=== PATIENT | male | born 1935 | race Caucasian/White ===

== ENCOUNTER 2017-11-17 10:30 | Outpatient (CLI) | payer MEDICARE ==
[2017-11-17 12:07] LABS: #Eosinphils 0.1 thou/uL (0.0-0.7); #Lymphocytes 1.6 thou/uL (1.20-3.40); #Monocytes 0.9 thou/uL (0.11-0.59); #Neutrophils 4.3 thou/uL (1.40-6.50); %Basophils 0.5 % (0.0-1.0); %Eosinophils 2.1 % (0.0-10.0); %Monocytes 12.3 % (0.0-10.0); %Neutrophils 62.1 % (42.0-75.0); Hemoglobin 14.5 g/dL (14.0-18.0); Mean Corpuscular HGB CONC 31.7 g/dL (32.0-36.0); Mean Corpuscular Hemoglobin 28.3 pg (27.0-31.0); Mean Corpuscular Volume 89.3 fL (78.0-98.0); Mean Platelet Volume 7.9 fL (7.4-10.4); Platelet Count 253 thou/uL (130-400); RBC Distribution Width 14.1 % (11.5-14.5); Red Blood Cell (RBC) Count 5.13 mill/uL (4.70-6.10); White Blood Cell (WBC) Count 6.9 thou/uL (4.8-10.8)
[2017-11-17 12:29] LABS: INR-International Normal Ratio 1.6; PTT 39.6 SEC (22.9-36.1); Prothrombin Time 18.8 SEC (12.0-14.7)
[2017-11-17 12:33] LABS: Anion Gap 10 mmol/L (10-20); BUN (Urea Nitrogen) 14 mg/dL (8.4-25.7); Calc. Creatinine Clearance 0 mL/min (70-130); Calcium 9.3 mg/dL (7.8-10.44); Carbon Dioxide 28 mmol/L (23-31); Chloride 110 mmol/L (98-107); Estimated GFR-MDRD 65; Glucose 73 mg/dL (83-110); Potassium 4.2 mmol/L (3.5-5.1); Sodium 144 mmol/L (136-145)
== END 2017-11-17 10:31 | disposition home or self-care (01) ==
LOC: LABBT 10:30
PROVIDERS: ATTEND Internal Medicine Cardiovascular Disease
DX: Z01.812 Encounter for preprocedural laboratory examination (principal); I48.1 Persistent atrial fibrillation
CPT/HCPCS: 80048; 85025; 85610; 85730

== ENCOUNTER 2017-11-19 09:09 | Day surgery (SDC) | payer MEDICARE ==
[2017-11-17 11:09] VITALS: BMI 29.4
[2017-11-19] MEDS ORDERED: PROPOFOL 20 ML ONE (10:01)
[2017-11-19] MEDS ORDERED: Midazolam HCl 2 mg/2 ml Vial ONE (10:05)
[2017-11-19] MEDS ORDERED: hydrALAZINE 20 MG/ML VIAL ONE (11:20)
--- NOTE | 2017-11-19 23:27 | OP ---
DATE OF SERVICE: 11/19/2017 PREPROCEDURE DIAGNOSIS: Atrial fibrillation. PROCEDURES PERFORMED Direct current cardioversion. SUMMARY: The patient is a pleasant 82-year-old white gentleman who comes to the outpatient area for planned ca rdioversion. Please see [facility] report for details. After cleared from thrombus, he received a first s ynchronized shock at 100 joules, which was unsuccessful. A second synchronized shock at 200 joules w as unsuccessful. A third synchronized shock at 360 joules, which successfully converted him from atr ial fibrillation to sinus rhythm with PACs. He tolerated the procedure well. RECOMMENDATIONS: Continue medical therapy. Continue Eliquis and flecainide as well as metoprolol. Follow up in the office in 1 month.
--- NOTE | 2017-11-19 23:35 | ECHO ---
DATE OF SERVICE: 11/19/2017. PREPROCEDURE DIAGNOSES: Atrial fibrillation. The Anesthesiology Department provided sedation for the patient. Please see their notes for details. After adequate sedation was achieved, the transesophageal probe was inserted into the mouth and into the esophagus and multiplanar views were obtained. Left ventricle appears to be normal size with normal wall thickness. Systolic function is normal, es timated EF at 55-60%. No regional wall motion abnormalities. Left atrium is mildly dilated. Left atrial appendage is small with spontaneous echo contours, but no evidence of mass or thrombus. Reduced velocities. Right atrium is normal size with no mass or thrombus. The right ventricle is normal size with normal RV systolic function. Aortic valve is sclerotic but opens well, no stenosis. Mild aortic insufficiency. The mitral valve is structurally normal. There is mild MR, no stenosis. Tricuspid valve is structurally normal. There is mild TR. Pulmonary valve structurally normal. There is mild PI. CONCLUSIONS: 1. Normal systolic function, EF of 55-60%. 2. Mild left atrial enlargement. 3. Small left atrial appendage with reduced velocities. 1. Spontaneous echo contours, but no mass or thrombus. 2. Mild TR, mild MR, mild PI.
== END 2017-11-19 12:40 | disposition home or self-care (01) ==
LOC: CCL 09:09
PROVIDERS: ATTEND Internal Medicine Cardiovascular Disease
PROC: 5A2204Z Restoration of Cardiac Rhythm, Single (ICD-10-PCS; principal; 2017-11-19)
PROC: B24BZZ4 Ultrasonography of Heart with Aorta, Transesophageal (ICD-10-PCS; 2017-11-19)
DX: I48.1 Persistent atrial fibrillation (principal); I08.1 Rheumatic disorders of both mitral and tricuspid valves; E78.5 Hyperlipidemia, unspecified; I10 Essential (primary) hypertension; Z79.01 Long term (current) use of anticoagulants; Z79.899 Other long term (current) drug therapy; Z88.1 Allergy status to other antibiotic agents
CPT/HCPCS: 92960; 93312; 96374; J0360; J2250; J2704

== ENCOUNTER 2018-12-10 09:23 | Outpatient (CLI) | payer MEDICARE ==
--- NOTE | 2018-12-10 11:36 | CT ---
POSTCONTRAST SOFT TISSUE NECK CT: HISTORY: Swelling of the back of the neck x many years. COMPARISON: None. TECHNIQUE: Postcontrast soft tissue neck CT is performed in the axial plane. Sagittal and coronal reformatted im ages are submitted for interpretation. FINDINGS: Brain parenchyma: No pathologic enhancement. Orbits: Bilateral ocular lenses are appropriately located. No intraorbital abnormality. Sinuses: Adequate aeration of the visualized paranasal sinuses and mastoid air cells. Aerodigestive tract: No mucosal abnormality. Limited evaluation of the oral cavity due to dental amal darek artifact. Midline fatty raphae of the tongue is preserved. Epiglottis is normal caliber. Preepiglottic fat is preserved. Symmetric attenuation of the submandibular and parotid glands. Heterogeneous thyroid gland. Nonemergent thyroid ultrasound is recommended. Symmetric attenuation of the paraspinal muscles and sternocleidomastoid muscles. Grossly the great vessels of the neck are patent. There is a hypodensity in the right peritracheal region measuring 2.7 x 3.3 cm. Groundglass opacities in the visualized lung parenchyma. Cervical spine vertebral body height is maintained. No fracture. There are varying degrees of central canal stenosis and neural foraminal narrowing. No evidence of lymphadenopathy by size criteria. In the posterior right neck, there is a well-circumscribed heterogeneous mass confined to the subcuta neous fat with mixed attenuation. 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 IMPRESSION: Well-differentiated liposarcoma the posterior left neck. CODE T Transcribed Date/Time: 12/10/2018 11:40 AM
== END 2018-12-10 09:24 | disposition home or self-care (01) ==
LOC: CT 09:23
PROVIDERS: ATTEND Student in an Organized Health Care Education/Training Program
DX: R22.1 Localized swelling, mass and lump, neck (principal); C76.0 Malignant neoplasm of head, face and neck
CPT/HCPCS: 70491; 82565

== ENCOUNTER 2018-12-14 08:19 | Day surgery (SDC) | payer MEDICARE ==
[2018-12-13 17:05] VITALS: BMI 30.2
[2018-12-14 10:03] LABS: Hemoglobin 14.7 g/dL (14.0-18.0)
[2018-12-14 10:40] LABS: Anion Gap 14 mmol/L (10-20); BUN (Urea Nitrogen) 15 mg/dL (8.4-25.7); Calc. Creatinine Clearance 83 mL/min (70-130); Calcium 9.4 mg/dL (7.8-10.44); Carbon Dioxide 22 mmol/L (23-31); Chloride 108 mmol/L (98-107); Estimated GFR-MDRD 76; Glucose 73 mg/dL (83-110); Potassium 3.8 mmol/L (3.5-5.1); Sodium 140 mmol/L (136-145)
[2018-12-14] MEDS ORDERED: PROPOFOL 200 MG/20 ML VIAL ONE (12:14)
[2018-12-14] MEDS ORDERED: Ondansetron PF 4 MG/2 ML Vial ONE (12:14)
[2018-12-14] MEDS ORDERED: ePHEDrine/0.9% NaCl/PF SYRINGE 50 mg/10 ml ONE (12:14)
[2018-12-14] MEDS ORDERED: Rocuronium Bromide 10 MG/ML (10ML VIAL) ONE (12:14)
--- NOTE | 2018-12-14 12:49 | EKG ---
Test Reason : PREOP Blood Pressure : / mmHG Vent. Rate : 047 BPM Atrial Rate : 077 BPM P-R Int : 000 ms QRS Dur : 100 ms QT Int : 492 ms P-R-T Axes : 000 -12 005 degrees QTc Int : 435 ms Atrial fibrillation with slow ventricular response Abnormal ECG No previous ECGs available Confirmed by DR. Sayda RAYMUNDO ([id number]) on 12/14/2018 12:48:37 PM Referred By: FRANCOIS Confirmed By:DR. Sayda RAYMUNDO
[2018-12-14] MEDS ORDERED: Lidocaine 1% w/Epinephrine 1:100K 20 ML VIAL ONE (14:51)
[2018-12-14] MEDS ORDERED: Fentanyl 100 MCG/2 ML VIAL ONE ×2 (14:55→16:52)
[2018-12-14] MEDS ORDERED: Bacitracin Zinc Ointment 30 gm TUBE ONE (16:09)
[2018-12-14] MEDS ORDERED: traMADol HCl 50 MG TAB ONE (18:23)
--- NOTE | 2018-12-15 09:07 | OP ---
DATE OF PROCEDURE: 12/14/2018 PREOPERATIVE DIAGNOSIS: Posterior neck mass. POSTOPERATIVE DIAGNOSIS: Posterior neck mass. PROCEDURE: Excision of large posterior neck mass and complex closure of wound in layers. PERMIT: Procedure, benefits, risks including those risk of bleeding, infection, injury to anesthesia, allergic reaction or nerve damage or recurrence necessitating revision surgery, and alternatives were reviewed with the patient and family, they expressed understanding of the information. The consent form was signed and witnessed and a paper copy of the consent form is available for review in the paper chart. INDICATIONS: This is a male patient presenting with at least 10 years of a posterior neck mass that has been increasing in size and given its position, irritation, pain and discomfort, the patient opted for surgical removal. ASSISTANTS: None. FINDINGS: Large posterior neck mass, roughly 7 cm that is fatty in nature. DESCRIPTION OF OPERATION: The patient was brought to the operating room and laid in a prone position on the operating room table. General endotracheal anesthesia was administered. The bed was pulled down gently. The patient was then injected with 1% lidocaine to 1:100,000 epinephrine and the patient was then marked and prepped and draped in a sterile fashion and a 7 cm incision was made over the posterior neck mass using a 15 blade cutting through the epidermis and through the dermis and just exposing the subcutaneous tissue. A Bovie cautery was then used to separate the superficial subcutaneous tissue and then using a Julisa rake retractor the dermis and subcutaneous layer. A Metzenbaum scissor was used to undermine the tissue and elevated the tissue superiorly and inferiorly from the horizontal incision on the neck, exposing the fatty mass deep to the incision site. The mass was then dissected clear of the subcutaneous tissue and care was taken not to damage any musculature of the neck and the mass was removed and sent for permanent pathologic evaluation. The wound was then irrigated copiously and suctioned and then small vessels were cauterized using Bovie cautery. A Valsalva was performed. A #10 channel drain was then placed in the cavity and secured with 2-0 silk suture. Next, 3-0 Vicryl suture was then used to close the deep layer and then a superficial layer for the large defect. A 4-0 Prolene was used in a continuous running fashion to close the superficial skin. Bacitracin was applied to the wound and bulb suction was then placed and seen clearly to be holding. The patient was then turned back to anesthesia for emergence and the patient tolerated the procedure well. ESTIMATED BLOOD LOSS: 2 mL. Job ID: [id number]
== END 2018-12-14 18:30 | disposition home or self-care (01) ==
LOC: SDC 08:19
PROVIDERS: ATTEND Student in an Organized Health Care Education/Training Program
PROC: 0JB50ZZ Excision of Left Neck Subcutaneous Tissue and Fascia, Open Approach (ICD-10-PCS; principal; 2018-12-14)
PROC: 0JQ50ZZ Repair Left Neck Subcutaneous Tissue and Fascia, Open Approach (ICD-10-PCS; 2018-12-14)
DX: D17.0 Benign lipomatous neoplasm of skin and subcutaneous tissue of head, face and neck (principal); I10 Essential (primary) hypertension; E78.5 Hyperlipidemia, unspecified; N40.0 Benign prostatic hyperplasia without lower urinary tract symptoms; Z79.01 Long term (current) use of anticoagulants; Z79.899 Other long term (current) drug therapy; Z88.1 Allergy status to other antibiotic agents; Z96.653 Presence of artificial knee joint, bilateral
CPT/HCPCS: 36415; 80048; 85014; 85018; 88307; 93005; 93010; J2405; J2704; J3010

== ENCOUNTER → 2022-08-18 | Day surgery (SDC) | payer MEDICARE ==
[2022-08-15 08:56] VITALS: BMI 33.0
[~2022-08-18] MED LIST: Acetaminophen 500 MG TAB ONE; Acetaminophen/Codeine 30-300mg Tablet ONE; HYDROcodone/Acetaminophen 5/325 mg Tablet ONE; Heparin 10,000 UNITS/ 10 ML VIAL ONE; Iopamidol 370 76% 100 ML VIAL ONE; Lidocaine 1% (PF) 30 ML VIAL ONE; Midazolam HCl 2 mg/2 ml Vial ONE; Nitroglycerin 50 MG/250 ML BOT 0 ML ONE; fentaNYL 50 mcg/mL 1 mL Vial ONE
[2022-08-18 08:51] LABS: #Eosinphils 0.1 thou/uL (0.0-0.7); #Monocytes 0.5 thou/uL (0.11-0.59); #Neutrophils 3.5 thou/uL (1.40-6.50); %Basophils 0.4 % (0.0-1.0); %Eosinophils 1.1 % (0.0-10.0); %Lymphocytes 22.1 % (21.0-51.0); %Monocytes 9.8 % (0.0-10.0); %Neutrophils 66.2 % (42.0-75.0); Hemoglobin 12.4 g/dL (14.0-18.0); Mean Corpuscular Hemoglobin 27.7 pg (27.0-31.0); Mean Corpuscular Volume 86.6 fl (78.0-98.0); Platelet Count 204 10x3/uL (130-400); RBC Distribution Width 15.8 % (11.5-14.5); Red Blood Cell (RBC) Count 4.48 mill/uL (4.70-6.10); White Blood Cell (WBC) Count 5.3 10x3/uL (4.8-10.8)
[2022-08-18 09:07] LABS: INR-International Normal Ratio 1.2; PTT 36.4 sec (22.9-36.1); Prothrombin Time 15.8 sec (12.0-14.7)
[2022-08-18 09:19] LABS: ALT (SGPT) 19 U/L (8-55); AST (SGOT) 17 U/L (5-34); Albumin 3.9 g/dL (3.4-4.8); Alkaline Phosphatase 63 U/L (40-110); Anion Gap 14 mmol/L (10-20); BUN (Urea Nitrogen) 11 mg/dL (8.4-25.7); Bilirubin, Total 0.8 mg/dL (0.2-1.2); Calc. Creatinine Clearance 87 mL/min (70-130); Calcium 9.3 mg/dL (7.8-10.44); Carbon Dioxide 23 mmol/L (23-31); Cardiac Risk 3.1 (Less than 4.5); Chloride 108 mmol/L (98-107); Cholesterol 123 mg/dl (< 200 Desired); Estimated GFR 82; Globulin 3.4 g/dL (2.4-3.5); Glucose 84 mg/dL (83-110); HDL Cholesterol 40 mg/dL (>60 Neg Risk); LDL Cholesterol, Calculated 55 mg/dL; Potassium 3.4 mmol/L (3.5-5.1); Protein, Total 7.3 g/dL (5.8-8.1); Sodium 142 mmol/L (136-145); Triglycerides 142 mg/dL (Less than 150)
== END ==
LOC: SDC 06:50
PROVIDERS: ATTEND Internal Medicine Cardiovascular Disease
DX: I48.0 Paroxysmal atrial fibrillation (principal); I25.10 Atherosclerotic heart disease of native coronary artery without angina pectoris; I35.0 Nonrheumatic aortic (valve) stenosis; D17.0 Benign lipomatous neoplasm of skin and subcutaneous tissue of head, face and neck; I10 Essential (primary) hypertension; R60.9 Edema, unspecified; E78.5 Hyperlipidemia, unspecified; Z79.01 Long term (current) use of anticoagulants; Z88.1 Allergy status to other antibiotic agents; Z96.653 Presence of artificial knee joint, bilateral
CPT/HCPCS: 80053; 80061; 85025; 85347; 85610; 85730; 93005; 93460; J3010; 36415; 93010; 99152; 99153; C1751; C1769; C1894; J1644; J2001; J2250; Q9967

== ENCOUNTER 2023-10-14 16:46 | Inpatient (IN) | payer MEDICARE ==
[2023-10-14 17:27] LABS: #Basophils Less than 0.03 10x3/uL (0.0-0.2); %Basophils 0.2 % (0.0-1.0); %Lymphocytes 13.4 % (21.0-51.0); %Monocytes 16.8 % (0.0-10.0); %Neutrophils 63.2 % (42.0-75.0); Hematocrit 21.8 % (42.0-52.0); Hemoglobin 6.7 g/dL (14.0-18.0); Mean Corpuscular HGB CONC 30.7 g/dL (32.0-36.0); Mean Corpuscular Volume 81.3 fL (78.0-98.0); Mean Platelet Volume 9.3 fL (7.4-10.4); Platelet Count 182 10x3/uL (130-400); RBC Distribution Width 23.7 % (11.5-14.5); Red Blood Cell (RBC) Count 2.68 mill/uL (4.70-6.10)
[2023-10-14 17:44] LABS: ALT (SGPT) 9 U/L (8-55); AST (SGOT) 14 U/L (5-34); Albumin 3.1 g/dL (3.4-4.8); Alkaline Phosphatase 54 U/L (40-110); Anion Gap 13 mmol/L (10-20); BUN (Urea Nitrogen) 29 mg/dL (8.4-25.7); Bilirubin, Total 0.6 mg/dL (0.2-1.2); Calc. Creatinine Clearance 0 mL/min (70-130); Calcium 9.1 mg/dL (7.8-10.44); Carbon Dioxide 25 mmol/L (23-31); Chloride 105 mmol/L (98-107); Estimated GFR 43; Globulin 3.6 g/dL (2.4-3.5); Glucose 86 mg/dL (83-110); Potassium 4.2 mmol/L (3.5-5.1); Protein, Total 6.7 g/dL (5.8-8.1); Sodium 139 mmol/L (136-145)
[2023-10-14] MEDS ORDERED: Ondansetron PF 4 MG/2 ML Vial IVP PRN (19:33)
[2023-10-14] MEDS ORDERED: Acetaminophen 325 MG TAB PO PRN (19:33)
[2023-10-14 19:56] LABS: Bacteria/HPF None Seen HPF (None Seen); Bilirubin Negative (Negative); Blood, Urine Negative (Negative); CAUTI Indications for Culture Pelvic or flank pain; Clarity Clear (Clear); Glucose, Urine (Dipstick) Normal (Negative); Ketone, Urine Negative (Negative); Leukocyte Negative Leu/uL (Negative); Nitrite Negative (Negative); Protein, Urine (Dipstick) Negative (Neg-Trace); RBC/HPF 0-3 HPF (0-3); Specific Gravity, Urine 1.011 (1.002-1.036); Squamous Epithelial 0-3 HPF (0-3); Urobilinogen Normal mg/dL (Less than 2); WBC/HPF 0-3 HPF (0-3)
[2023-10-14] MEDS ORDERED: Pantoprazole 40 MG VIAL ONE (19:59)
[2023-10-14 20:06] LABS: Urine Culture Reflex No No
[2023-10-14 21:19] LABS: Iron 23 ug/dL (65-175); Iron Binding Capacity, Total 279 mcg/dL (261-462)
[2023-10-14 21:53] LABS: INR-International Normal Ratio 1.7; Prothrombin Time 20.3 sec (12.0-14.7)
[2023-10-15 03:23] LABS: #Basophils Less than 0.03 10x3/uL (0.0-0.2); %Basophils 0.4 % (0.0-1.0); %Eosinophils 6.6 % (0.0-10.0); %Lymphocytes 15.7 % (21.0-51.0); %Neutrophils 60.1 % (42.0-75.0); Hematocrit 23.6 % (42.0-52.0); Hematocrit 23.9 % (42.0-52.0); Hemoglobin 7.1 g/dL (14.0-18.0); Hemoglobin 7.2 g/dL (14.0-18.0); Mean Corpuscular HGB CONC 30.1 g/dL (32.0-36.0); Mean Corpuscular Hemoglobin 24.4 pg (27.0-31.0); Platelet Count 183 10x3/uL (130-400); RBC Distribution Width 22.5 % (11.5-14.5); Red Blood Cell (RBC) Count 2.95 mill/uL (4.70-6.10)
[2023-10-15 03:43] LABS: Anion Gap 13 mmol/L (10-20); BUN (Urea Nitrogen) 24 mg/dL (8.4-25.7); Calc. Creatinine Clearance 57 mL/min (70-130); Calcium 8.9 mg/dL (7.8-10.44); Carbon Dioxide 19 mmol/L (23-31); Chloride 109 mmol/L (98-107); Estimated GFR 59; Glucose 81 mg/dL (83-110); Magnesium 2.2 mg/dL (1.6-2.6); Potassium 3.4 mmol/L (3.5-5.1); Sodium 138 mmol/L (136-145)
[2023-10-15 03:44] VITALS: BMI 28.8
[2023-10-15] MEDS ORDERED: Polyethylene Glycol 3350 17 GM Packet PO PRN (04:17)
[2023-10-15] MEDS: Potassium Bicarbonate/Cit Ac 20 MEQ TAB PO SCH (05:35)
[2023-10-15] MEDS: Loratadine 10 MG TAB PO SCH (08:21)
[2023-10-15] MEDS: Pantoprazole 40 MG VIAL IVP SCH (08:22)
[2023-10-15] MEDS: Amlodipine 10 MG TAB PO SCH (08:36)
[2023-10-15] MEDS: Furosemide 40 MG TAB PO SCH (08:36)
[2023-10-15] MEDS: Ranolazine ER 500 MG TAB PO SCH (08:36)
[2023-10-15 12:25] LABS: Hematocrit 28.4 % (42.0-52.0); Hemoglobin 8.9 g/dL (14.0-18.0)
[2023-10-15] MEDS: GoLYTELY 4,000 ml Bottle PO SCH (20:12)
[2023-10-15] MEDS: Atorvastatin Calcium 10 MG TAB PO SCH (20:14)
[2023-10-16 04:19] LABS: #Basophils Less than 0.03 10x3/uL (0.0-0.2); %Basophils 0.3 % (0.0-1.0); %Eosinophils 4.8 % (0.0-10.0); %Lymphocytes 12.5 % (21.0-51.0); %Monocytes 12.8 % (0.0-10.0); %Neutrophils 69.3 % (42.0-75.0); Hemoglobin 9.6 g/dL (14.0-18.0); Mean Corpuscular Volume 80.7 fL (78.0-98.0); Mean Platelet Volume 9.7 fL (7.4-10.4); Platelet Count 208 10x3/uL (130-400); RBC Distribution Width 21.9 % (11.5-14.5); Red Blood Cell (RBC) Count 3.84 mill/uL (4.70-6.10)
[2023-10-16 04:51] LABS: Anion Gap 14 mmol/L (10-20); BUN (Urea Nitrogen) 16 mg/dL (8.4-25.7); Calc. Creatinine Clearance 59 mL/min (70-130); Calcium 9.1 mg/dL (7.8-10.44); Carbon Dioxide 24 mmol/L (23-31); Chloride 106 mmol/L (98-107); Estimated GFR 62; Glucose 76 mg/dL (83-110); Potassium 3.6 mmol/L (3.5-5.1); Sodium 140 mmol/L (136-145)
[2023-10-16] MEDS: Potassium Bicarbonate/Cit Ac 20 MEQ TAB PO SCH (06:29)
[2023-10-16] MEDS ORDERED: PROPOFOL 20 ML ONE (10:08)
[2023-10-16] MEDS ORDERED: GLYCOPYRROLATE/PF 0.2 MG/ML VIAL ONE (10:34)
[2023-10-16] MEDS ORDERED: PHENYLEPHRINE-NS 100 MCG/ML 10 ML SYRINGE ONE (10:48)
[2023-10-17 04:21] LABS: #Basophils Less than 0.03 10x3/uL (0.0-0.2); %Basophils 0.3 % (0.0-1.0); %Eosinophils 1.8 % (0.0-10.0); %Lymphocytes 10.1 % (21.0-51.0); %Monocytes 11.1 % (0.0-10.0); %Neutrophils 76.3 % (42.0-75.0); Hematocrit 27.3 % (42.0-52.0); Hemoglobin 8.4 g/dL (14.0-18.0); Mean Corpuscular HGB CONC 30.8 g/dL (32.0-36.0); Mean Corpuscular Hemoglobin 25.8 pg (27.0-31.0); Mean Corpuscular Volume 83.7 fL (78.0-98.0); Mean Platelet Volume 10.2 fL (7.4-10.4); Platelet Count 189 10x3/uL (130-400); RBC Distribution Width 22.2 % (11.5-14.5); Red Blood Cell (RBC) Count 3.26 mill/uL (4.70-6.10)
[2023-10-17 04:49] LABS: Anion Gap 14 mmol/L (10-20); BUN (Urea Nitrogen) 11 mg/dL (8.4-25.7); Calc. Creatinine Clearance 75 mL/min (70-130); Calcium 8.3 mg/dL (7.8-10.44); Carbon Dioxide 19 mmol/L (23-31); Chloride 108 mmol/L (98-107); Estimated GFR 83; Glucose 67 mg/dL (83-110); Magnesium 1.8 mg/dL (1.6-2.6); Sodium 137 mmol/L (136-145)
[2023-10-17 18:08] LABS: Hematocrit 30.8 % (42.0-52.0); Hemoglobin 9.6 g/dL (14.0-18.0)
[2023-10-18 03:52] LABS: Hematocrit 29.3 % (42.0-52.0); Hemoglobin 9.2 g/dL (14.0-18.0)
[2023-10-18] MEDS: Furosemide 20 MG TAB PO SCH (09:54)
[2023-10-19 05:15] LABS: #Basophils Less than 0.03 10x3/uL (0.0-0.2); %Basophils 0.2 % (0.0-1.0); %Eosinophils 5.9 % (0.0-10.0); %Lymphocytes 15.4 % (21.0-51.0); %Monocytes 10.9 % (0.0-10.0); %Neutrophils 67.4 % (42.0-75.0); Hematocrit 29.8 % (42.0-52.0); Hemoglobin 9.3 g/dL (14.0-18.0); Mean Corpuscular HGB CONC 31.2 g/dL (32.0-36.0); Mean Corpuscular Hemoglobin 25.8 pg (27.0-31.0); Mean Corpuscular Volume 82.8 fL (78.0-98.0); Platelet Count 221 10x3/uL (130-400); RBC Distribution Width 21.2 % (11.5-14.5)
[2023-10-19 08:43] VITALS: TEMP 98
[2023-10-19 09:14] VITALS: BP 125/63
== END 2023-10-19 12:00 | disposition home or self-care (01) | DRG 394 ==
LOC: ERS 16:46 → 2SW 19:35 → OBSVTOIN 10-15 10:56
PROVIDERS: ADMIT Internal Medicine; ATTEND Internal Medicine
PROC: 30233N1 Transfusion of Nonautologous Red Blood Cells into Peripheral Vein, Percutaneous Approach (ICD-10-PCS; principal; 2023-10-14)
PROC: 0DBK8ZZ Excision of Ascending Colon, Via Natural or Artificial Opening Endoscopic (ICD-10-PCS; 2023-10-16)
PROC: 0DBL8ZZ Excision of Transverse Colon, Via Natural or Artificial Opening Endoscopic (ICD-10-PCS; 2023-10-16)
PROC: 0DBN8ZZ Excision of Sigmoid Colon, Via Natural or Artificial Opening Endoscopic (ICD-10-PCS; 2023-10-16)
PROC: 0DBH8ZZ Excision of Cecum, Via Natural or Artificial Opening Endoscopic (ICD-10-PCS; 2023-10-16)
PROC: 30233K1 Transfusion of Nonautologous Frozen Plasma into Peripheral Vein, Percutaneous Approach (ICD-10-PCS; 2023-10-17)
DX: K63.5 Polyp of colon (principal); D62 Acute posthemorrhagic anemia; K92.2 Gastrointestinal hemorrhage, unspecified; I50.22 Chronic systolic (congestive) heart failure; N17.9 Acute kidney failure, unspecified; I48.20 Chronic atrial fibrillation, unspecified; I11.0 Hypertensive heart disease with heart failure; E78.5 Hyperlipidemia, unspecified; I35.0 Nonrheumatic aortic (valve) stenosis; K57.30 Diverticulosis of large intestine without perforation or abscess without bleeding; Z96.653 Presence of artificial knee joint, bilateral; I25.10 Atherosclerotic heart disease of native coronary artery without angina pectoris; Z79.82 Long term (current) use of aspirin; Z88.1 Allergy status to other antibiotic agents; Z79.01 Long term (current) use of anticoagulants; I25.2 Old myocardial infarction
CPT/HCPCS: 36415; 36416; 36430; 80048; 80053; 81001; 82274; 82728; 83540; 83550; 83735; 83880; 85014; 85018; 85025; 85610; 85730; 86850; 86900; 86901; 88305; 96374; 96376; C1889; G0378; J2470; J2704; J3490; P9016; P9059